=== PATIENT | female | born 1955 | race Caucasian/White ===

== ENCOUNTER 2016-10-17 12:15 | Outpatient (CLI) | payer BC ==
[2014-12-16 12:36] VITALS: BMI 28.0
[~2016-10-17 12:15] MED LIST: MULTIPLE VITAMI1 TA1 PO; OSPHENA; OYSCO 500+D TAB1 TAB PO; PEPCID20 MG PO; PRAVACHOL20 MG PO; PROMETRIUM100 MG
== END 2016-10-17 14:11 ==
LOC: D.MAMMO 12:15
DX: Z12.31 Encounter for screening mammogram for malignant neoplasm of breast (principal)

== ENCOUNTER → 2017-02-05 19:30 | Outpatient (CLI) | payer BC ==
[2014-12-16 12:36] VITALS: BMI 28.0
== END | disposition home or self-care (01) ==
LOC: D.SLEEP 19:30
DX: G47.33 Obstructive sleep apnea (adult) (pediatric) (principal)

== ENCOUNTER → 2017-02-26 19:27 | Outpatient (CLI) | payer BC ==
[2014-12-16 12:36] VITALS: BMI 28.0
== END | disposition home or self-care (01) ==
LOC: D.SLEEP 19:27
DX: G47.30 Sleep apnea, unspecified (principal)

== ENCOUNTER → 2017-12-31 20:19 | Outpatient (CLI) | payer BC ==
[2014-12-16 12:36] VITALS: BMI 28.0
== END | disposition home or self-care (01) ==
LOC: D.MAMMO 11:45
DX: Z12.31 Encounter for screening mammogram for malignant neoplasm of breast (principal)

== ENCOUNTER → 2019-04-08 19:00 | Outpatient (CLI) | payer MEDICARE, OTHER ==
[2014-12-16 12:36] VITALS: BMI 28.0
== END | disposition home or self-care (01) ==
LOC: D.MAMMO 15:30
PROVIDERS: ATTEND Family Medicine
DX: Z12.31 Encounter for screening mammogram for malignant neoplasm of breast (principal)

== ENCOUNTER 2020-05-13 13:30 | Outpatient (CLI) | payer MEDICARE, OTHER ==
[2014-12-16 12:36] VITALS: BMI 28.0
== END 2020-05-13 14:30 | disposition home or self-care (01) ==
LOC: D.MAMMO 13:30
PROVIDERS: ATTEND Family Medicine
DX: Z12.31 Encounter for screening mammogram for malignant neoplasm of breast (principal)